=== PATIENT | male | born 1995 | race Two or more races ===

== ENCOUNTER 2019-09-25 14:26 | Emergency (ER) | payer OTHER ==
[~2019-09-25] VITALS: Ht 152.4 cm; Wt 63.5 kg
[~2019-09-25 14:26] MED LIST: KEPPRA100 MG/ML
[2019-09-25] MEDS ORDERED: KEPPRA XR500 MG PO (14:35)
== END 2019-09-25 17:17 | disposition home or self-care (01) ==
LOC: ER 14:26
DX: S61.021A Laceration with foreign body of right thumb without damage to nail, initial encounter (principal); W45.8XXA Other foreign body or object entering through skin, initial encounter; Y93.89 Activity, other specified; Y92.69 Other specified industrial and construction area as the place of occurrence of the external cause; Y99.8 Other external cause status